=== PATIENT | male | born 1955 | race Caucasian/White ===

== ENCOUNTER 2024-03-31 10:09 | Observation (INO) | payer OTHER, SELFPAY ==
[2024-03-31] VITALS (9 sets, daily range): BP systolic 144–169; BP diastolic 75–90; PULSE 57–71; RESP 15–18; TEMP 35.9–36.7; O2SAT 93–98; BMI 22.4
--- NOTE | 2024-03-31 10:31 | CT_ITS ---
We are attempting to reach an attending provider to discuss findings. An addendum with communication details will be sent when the communication is complete. STUDY: CTA HEAD AND NECK WITH CONTRAST REASON FOR EXAM: Male, 68 years old. Neuro deficit, acute, stroke suspected RADIATION DOSAGE (If Supplied By Facility): CTDIvol = ( 23.55 ) mGy, DLP = ( 727.25 ) mGycm TECHNIQUE: CT angiography was performed with a multi-detector CT scanner. Data acquisition was obtained from the skull base through the vertex following intravenous administration of IV 100mL Isovue-370. MIP images were reconstructed from the axial data set. Post-processing of the angiographic images was performed, with multiplanar reformation and 3D reconstruction. Individualized dose optimization techniques were used for this CT. COMPARISON: No relevant priors. FINDINGS: Normal bilateral petrous carotid arteries. There is calcified plaque formation of the right cavernous carotid artery, without a cross-sectional luminal stenosis. There is calcified plaque formation of the left cavernous carotid artery, without a cross-sectional luminal stenosis. Normal right A1 segments of the anterior cerebral artery. Normal left A1 segments of the anterior cerebral artery. Normal intact anterior communicating artery (ACOM). Normal bilateral A2 segments of the anterior cerebral arteries. Normal right M1 and M2 segments of the middle cerebral arteries, with a normal M1 bifurcation. Normal left M1 and M2 segments of the middle cerebral arteries, with a normal M1 bifurcation. Normal right posterior communicating artery (PCOM). Normal left posterior communicating artery (PCOM). There is a small atretic left vertebral artery with a dominant right vertebral artery. Normal basilar artery with a normal basilar bifurcation. The visualized bilateral superior cerebellar (SCA) arteries are normal. Normal bilateral P1, P2 and visualized P3 segments of the posterior cerebral arteries. There is no demonstrated aneurysm of the [place]. There is no demonstrated abnormality of the visualized brain. AORTIC ARCH: Normal visualized aortic arch. Normal origins of the brachiocephalic, left common carotid, and left subclavian arteries. RIGHT CAROTID ARTERIES: Normal right common carotid artery (CCA). Normal right common carotid bulb. Normal origin of the right internal carotid (ICA) artery without a hemodynamically significant stenosis. Normal visualized cervical portion of the right internal carotid artery. Normal origin of the right external carotid artery (ECA). LEFT CAROTID ARTERIES: Normal left common carotid artery (CCA). Normal left common carotid bulb. Normal origin of the left internal carotid (ICA) artery without a hemodynamically significant stenosis. Normal visualized cervical portion of the left internal carotid artery. Normal origin of the left external carotid artery (ECA). VERTEBRAL ARTERIES: There is enhancement within the bilateral vertebral arteries with a small left vertebral artery, and a dominant right vertebral artery. The distal left vertebral artery is occluded at the level of the axis with reconstitution at the skull base. CT/STROKE CTA Head AND Neck W/Con IMPRESSION: Normal CTA Head with contrast. No carotid stenosis. Widely patent right vertebral artery which is dominant. 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 Electronically Signed: Mao Pierre MD at 11:12 EDT ,
--- NOTE | 2024-03-31 10:31 | EKG12_ITS ---
Test Reason : STROKE ALERT Blood Pressure : / mmHG Vent. Rate : 053 BPM Atrial Rate : 053 BPM P-R Int : 150 ms QRS Dur : 118 ms QT Int : 440 ms P-R-T Axes : 076 060 042 degrees QTc Int : 412 ms Sinus bradycardia Non-specific intra-ventricular conduction delay Borderline ECG Confirmed by Jn Mendoza ([id number]), editor trade journal MARY ANN VINCENT ([id number]) on 04/01/2024 8:25:24 AM Referred By: Confirmed By:Jn Mendoza
--- NOTE | 2024-03-31 10:31 | RAD_ITS ---
STUDY: X-RAY CHEST REASON FOR EXAM: Male, 68 years old. Neuro deficit, acute, stroke suspected TECHNIQUE: Single AP portable view of the chest. COMPARISON: None. FINDINGS: The lungs are clear and expanded. There is no demonstrated pleural abnormality. Normal size heart. Normal mediastinum and jake. Normal visualized pulmonary arteries. Normal visualized aortic arch and descending thoracic aorta. Normal visualized thoracic spine. Normal visualized ribs, clavicles, and shoulders. There is no demonstrated abnormality of the visualized soft tissue structures of the upper abdomen. RAD/Chest 1 View IMPRESSION: Normal x-ray examination of the chest. Electronically Signed: Mao Pierre MD at 12:09 EDT ,
--- NOTE | 2024-03-31 10:32 | NURSING ---
1031 stroke alert called
--- NOTE | 2024-03-31 10:32 | ED.VIS.STROK ---
HPI History of Present Illness Chief Complaint: Dizziness Informant: patient and family (x2) Onset/Context/Timing Onset: Today Narrative Narrative: 68-year-old male brought in by family because of acute onset of disequilibrium/dizziness. He states he feels like a sensation of movement like he is off balance not necessarily dizzy and his head although at 1 point during the evaluation he changed position and said he felt motion inside of his head. He states this started at 8:00 this morning, he had already been up and was feeling okay this morning until he sat down and then upon standing up. He did not feel like he was going to pass out or faint. It was associated with nausea and vomiting several times. No headache. No vision change. No peripheral neurologic symptoms, and the dizziness has not gone away it just gets worse when he changes positions, and he is off balance whenever he tries to walk. He has never had this before. He has chronic tinnitus that is no different this morning. No earache. No recent URI or other infection. No fevers or chills this morning with vomiting, no diarrhea no abdominal pain. He states he takes a baby aspirin daily, no anticoagulants or other antiplatelets, he states he has no known heart problems but he did have a cardiac calcium score that was in the 400s and his doctor wants him to be continuing on aspirin he has not had a heart catheterization. PFSH PFSH Allergy/AdvReac Type Severity Reaction Status Date / Time No Known Allergies Allergy Verified 03/31/24 10:10 [facility] ED Constitutional Constitutional ED: Denies chills or fever(s) Eyes Eyes: Denies change in vision or diplopia ENT ENT ED: Reports as per HPI, tinnitus and vertigo; Denies rhinorrhea or sore throat Cardiovascular Cardiovascular: Denies chest pain or palpitations Respiratory/Chest Respiratory/Chest: Denies cough or dyspnea Gastrointestinal Gastrointestinal: Reports nausea and vomiting; Denies abdominal pain or diarrhea Genitourinary Genitourinary ED: Denies dysuria or hematuria Musculoskeletal Musculoskeletal: Denies back pain or neck pain Integumentary Denies abscess or rash Neurologic Neurologic: Reports as per HPI, abnormal gait, disequilibrium and dizziness; Denies abnormal speech, headache(s), paresthesias or weakness Psychiatric Psychiatric: Denies anxiety or suicidal thoughts EXAM Physical Exam Const Vital Signs: 03/31/24 10:11 03/31/24 10:31 03/31/24 10:31 Temperature 96.6 F L Temperature Source Temporal Pulse Rate 60 57 L Respiratory Rate 18 18 Blood Pressure 169/75 H 145/90 H Blood Pressure Mean 106 108 Pulse Ox 98 97 Oxygen Delivery Method Room Air Room Air 03/31/24 11:01 03/31/24 11:31 Temperature Temperature Source Pulse Rate 66 60 Respiratory Rate 16 16 Blood Pressure 163/80 H 151/75 H Blood Pressure Mean 107 100 Pulse Ox 97 98 Oxygen Delivery Method Room Air Room Air Positive well nourished and well developed General Appearance ED: well developed and NAD HEENT Reports TM's clear and moist mucous membranes normocephalic and atraumatic Tympanic Membrane ED: Yes TM's clear Eyes PERRL and EOMs intact bilaterally Neck full ROM and supple Resp normal respiratory effort and clear to auscultation bilaterally Cardio regular rate, regular rhythm and no murmurs GI non-tender and non-distended Auscultation: normoactive bowel sounds Palpation: soft Back/Spine no CVA tenderness General Back: other FROM Extremity normal to inspection General Extremety ED: Negative for edema, pulses abnormal or tenderness General Extremity: Negative for edema or pulses abnormal Neuro oriented x3, CN's II-XII intact bilaterally and no sensory deficits noted Neuro Narrative: Normal [id number] and [id number] bilaterally. Normal jolt test. Sensorium / Orientation: awake and alert Motor Exam: strength 5/5 throughout Psych mental status grossly normal Skin no rashes or lesions noted and no wounds NIHSS NIHSS Initial: 1a Level of Consciousness: 0 1b LOC Questions (Score 2 if aphasic/stupor): 0 1c LOC Commands (Only score 1st attempt): 0 2 Best Gaze (If aphasic, use reflexive mvmts.): 0 3 Visual: 0 4 Facial Palsy: 0 5 Motor Arm Right (UN = amputation/fusion): 0 5 Motor Arm Left: 0 6 Motor Leg Right: 0 6 Motor Leg Left: 0 7 Limb ataxia (Only + if out of proportion): 0 8 Sensory (Aphasia/stupor=0 or 1, coma=2): 0 9 Best Language: 0 10 Dysarthria (mute, coma=2, intubated=UN): 0 11 Extinction and Inattention (only scored if +): 0 Total Score: 0 MDM MDM MDM Narrative Medical decision making narrative: Given this patient's evaluation I called a stroke alert. His NIH is 0, but he has a blood pressure of 169/75, symptoms that have not resolved since the onset, and a normal jolt test while having symptoms, all consistent with central etiology of vertigo. Emergently went to CT, I reviewed the imaging of the plain CT and a CTA and agree with the reports, the plain CT report was available initially showing no bleed or obvious etiology. Later this CTA was available and shows no LVO although there is a stenotic left vertebral which may or may not be related to the cause of his symptoms. I discussed with stroke neurology, who evaluated the patient at the bedside. We discussed the risk benefits and alternatives of thrombolytic with the patient and family, we all are in agreement at this time to hold off on thrombolytics due to nondisabling symptoms and risk of the medication outweighing the potential benefits at this time. He is not in A-fib. His systolic blood pressure is 149 on reevaluation. Neurology agrees with loading him with Plavix and admitting him for further workup. We are all in agreement that peripheral vertigo is in the differential here but he does have risk factors for TIA/stroke. Lab Data Attestation: I reviewed the patient's lab results. Labs: Laboratory Results - last 24 hr 03/31/24 03/31/24 03/31/24 10:37 10:39 11:20 WBC 12.2 H RBC 4.72 Hgb 14.2 Hct 43.4 MCV 91.9 MCH 30.1 MCHC 32.7 RDW Std Deviation 42.0 RDW Coeff of Natan 12.4 Plt Count 270 MPV 9.8 Immature Gran % (Auto) 0.400 Neut % (Auto) 89.9 H Lymph % (Auto) 6.1 L Burke % (Auto) 2.8 Eos % (Auto) 0.5 Baso % (Auto) 0.3 Absolute Neuts (auto) 10.9 H Absolute Lymphs (auto) 0.74 L Nucleated RBC % 0 PT 13.8 INR 1.1 APTT 30.3 Sodium 140 Potassium 3.6 Chloride 104 Carbon Dioxide 32.0 Anion Gap 5 BUN 17 Creatinine 1.06 Estim Creat Clear Calc 75.93 Est GFR (MDRD) Af Amer 90 Est GFR (MDRD) Non-Af 74 BUN/Creatinine Ratio 16.0 Glucose 145 H Calcium 9.3 Troponin I High Sens 5 POC Glucose 133 H Radiography Diagnostic Testing: Clinical Impression(s) from Imaging Studies Head/Neck CTA 03/31/24 10:31 IMPRESSION: Normal CTA Head with contrast. No carotid stenosis. Widely patent right vertebral artery which is dominant. 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 Electronically Signed: Mao Pierre MD at 11:12 EDT , Brain CT 03/31/24 10:37 IMPRESSION: No acute findings, no hemorrhage midline shift or mass effect. N.B. : The above Results were Read Back by Hussain Toro MD to Genaro Rodriguez and understanding confirmed on 03/31/2024 10:46:55 (ET). Electronically Signed: Hussain Troo MD at 10:48 EDT , ADDENDUM: 03/31/24 1055 IMPRESSION: No acute findings, no hemorrhage midline shift or mass effect. N.B. : The above Results were Read Back by Hussain Toro MD to Genaro Rodriguez and understanding confirmed on 03/31/2024 10:46:55 (ET). Electronically Signed: Hussain Toro MD at 10:48 EDT , Rhythm Strip Rhythm Strip: Sinus Rhythm Rate: 60 Ectopy: None EKG Initial EKG: Attestation: I personally reviewed and interpreted this EKG as follows: Interpretation: Sinus Rhythm and No Acute Injury Pattern Management Discussion w/another healthcare provider: Hospitalist, Director [employer] ([facility] stroke neurology) and Radiologist ([id number] neg NCCT) Stroke Documentation Questions Stroke Team Activated: No (Upon evaluation around 1030) Was Patient considered for Endovascular Intervention?: No-CTA negative, determined not to be an endovascular candidate IV Thrombolytic Administered: No Critical Care Time Critical Care Time: Yes Critical care time (excluding procedures): 30-74 minutes (37 min), Including time spent:, Discussing w/Patient &/or Family/Carpenter Assistant Installer, Discussing w/Consultants, Arranging Admission or Transfer and Performing Direct Patient Care at Bedside Discharge Plan Dx/Rx/DC Orders Clinical Impression: Dysequilibrium Disposition Disposition: Acute Care Hospital [facility]
--- NOTE | 2024-03-31 10:36 | NURSING ---
NO OLD EKGS
--- NOTE | 2024-03-31 10:37 | CT_ITS ---
INDICATION: Acute mental status EXAMINATION: CT BRAIN - CT Head Stroke Protocol W/O Contrast Injection TECHNIQUE: Multiple axial images were obtained of the head without intravenous contrast. The protocol utilizes one or more of the following dose reduction techniques: automated exposure control, adjustment of mA and/or kV according to patient size,and/or use of iterative reconstruction technique. IV Contrast dosage and agent: None. RADIATION DOSAGE (If Supplied By Facility): CTDIvol = ( ) mGy, DLP = ( ) mGycm COMPARISON: FINDINGS: BRAIN PARENCHYMA: No intra- or extra-axial hemorrhage. No evidence of acute infarct. No intracranial mass or mass effect. There is preservation of the fung/white matter interface. Posterior fossa structures are unremarkable. CSF SPACES: Appropriate for age. No hydrocephalus. Basal cisterns are patent. CALVARIUM, SKULL BASE, PARANASAL SINUSES AND MASTOID AIR CELLS: Clear. No discrete lytic or blastic abnormalities. ORBITS: Both globes, extraocular muscles, optic nerves and retrobulbar fat appear unremarkable. ASPECTS Score for Acute Strokes: 10 CT/STROKE Brain/Head without Cont IMPRESSION: No acute findings, no hemorrhage midline shift or mass effect. N.B. : The above Results were Read Back by Hussain Toro MD to Genaro Rodriguez and understanding confirmed on 03/31/2024 10:46:55 (ET). Electronically Signed: Hussain Toro MD at 10:48 EDT ,
[2024-03-31 10:55] LABS: Bedside Glucose 133 mg/dL (74-106)
[2024-03-31 10:58] LABS: International Normalized Ratio 1.1; Prothrombin Time (Protime)PT. 13.8 SECONDS (11.7-14.9)
[2024-03-31 11:00] LABS: Partial Thromboplast Time 30.3 Seconds (24.1-36.2)
[2024-03-31 11:14] LABS: Anion Gap 5 (5-15); BUN 17 mg/dL (7-18); Calcium,Total 9.3 mg/dL (8.5-10.1); Chloride 104 mmol/L (98-107); Creatinine, Serum 1.06 mg/dL (0.70-1.30); EST Glomerular Filtration Rate 74 mL/min (>60); Est Glom Filt Rate - Afr Amer 90 mL/min (>60); Estimated Creatinine Clearance 75.93 ml/min; Glucose 145 mg/dL (74-106); Potassium 3.6 mmol/L (3.5-5.1); Sodium Level 140 mmol/L (136-145); Troponin-I HS 5 pg/mL (3.0-78.0)
[2024-03-31 11:38] LABS: Absolute Lymphocyte Count 0.74 X10^3/uL (0.83-4.51); Absolute Neutrophil Count 10.9 X10^3/uL (2.0-7.7); Basophil# 0.04 X10^3/uL; Basophil% 0.3 % (0-1); Eosinophil# 0.06 X10^3/uL; Eosinophils% 0.5 % (0-5); Hematocrit 43.4 % (40-54); Hemoglobin 14.2 g/dL (13.0-16.5); Lymphocyte # 0.74 X10^3/ul (0.83-4.51); Lymphocyte % 6.1 % (19-41); Mean Corp Hgb Conc 32.7 g/dL (32-36); Mean Corpuscular Hgb 30.1 pg (27.0-32.0); Mean Corpuscular Volume 91.9 fL (80-94); Mean Platelet Vol. 9.8 fl (6.2-12.0); Monocyte# 0.34 X10^3/uL; Monocyte% 2.8 % (0-10); NRBC Flagged by Analyzer 0 % (0-5); Neutrophil # 10.93 X10^3/uL (2.7-7.7); Neutrophil % 89.9 % (47-70); Platelet Count 270 K/mm3 (150-450); RBC Distribution Width CV 12.4 % (11.6-14.6); Red Blood Count 4.72 M/mm3 (4.6-6.2); White Blood Count 12.2 K/mm3 (4.4-11.0)
--- NOTE | 2024-03-31 11:54 | PCM.HP.STD ---
HPI - General General Date of Admission: 03/31/24 Date of Service: 03/31/24 Chief Complaint: Disequilibrium HPI Narrative PRECIOUS HWANG, is a 68 M with past medical history signal for hypertension, dyslipidemia who presented to the emergency department with disequilibrium. Per patient he was in usual state of health till the morning of his presentation when he woke up suddenly from his sitting position and felt wobbly. Denied any falls he however did experience subjective sensation of spinning movement. Denied any focal weakness no slurred speech. He presented to the emergency department subsequently. Initial head CT came back unremarkable CTA did showHypoplastic left vertebral artery occluded at the level of the axis with reconstitution at the skull base[facility] given patient mild symptoms. Subsequently admitted to monitored bed for further manage PFSH Allergy/AdvReac Type Severity Reaction Status Date / Time No Known Allergies Allergy Verified 03/31/24 10:10 ROS ROS Narrative GENERAL: denies fever, chills, night sweats, weight loss, anorexia HEENT: denies headache, sinus congestion, or drainage, dysphagia RESPIRATORY: denies cough, sputum production, shortness of breath, dyspnea on exertion CARDIAC: denies chest pain, palpitations, orthopnea, PND GASTROINTESTINAL: denies abdominal pain, nausea, vomiting, melena, GENITOURINARY: denies dysuria, urgency, frequency, heamaturia EXTREMITY: denies swelling MUSCULOSKELETAL: denies current joint pain or tenderness NEUROLOGIC: denies focal numbness, weakness, tingling HEMATOLOGIC: denies easy bruising and/or hemorrhage INTEGUMENT: denies rashes PSYCHIATRIC: denies suicidal or homicidal ideation Vital Signs Vital Signs Vital Signs: 03/31/24 10:11 03/31/24 10:31 03/31/24 10:31 Temperature 96.6 F L Temperature Source Temporal Pulse Rate 60 57 L Respiratory Rate 18 18 Blood Pressure 169/75 H 145/90 H Blood Pressure Mean 106 108 Pulse Ox 98 97 Oxygen Delivery Method Room Air Room Air 03/31/24 11:01 03/31/24 11:31 Temperature Temperature Source Pulse Rate 66 60 Respiratory Rate 16 16 Blood Pressure 163/80 H 151/75 H Blood Pressure Mean 107 100 Pulse Ox 97 98 Oxygen Delivery Method Room Air Room Air Weight Weight: 79.379 kg Body Mass Index (BMI) 22.4 Physical Exam Narrative GENERAL: cooperative HEENT: Atraumatic; normocephalic EYES; Anicteric, Normal Conjunctiva NECK; supple, normal thyroid, RESPIRATORY: Diminished to auscultation CARDIOVASCULAR: Regular S1 S2, GI: soft, normoactive bowel sounds, : No Renal angle tenderness; EXTREMITIES: No edema, no clubbing, MUSCULOSKELETAL: no muscle wasting NEURO: Awake; no lateralizing signs. SKIN: No Rash PSYCH; Flat affect Results Lab / Micro Data 03/31/24 11:20 03/31/24 10:39 Labs: Laboratory Results - last 24 hr 03/31/24 10:37: POC Glucose 133 H 03/31/24 10:39: PT 13.8, INR 1.1, APTT 30.3, Sodium 140, Potassium 3.6, Chloride 104, Carbon Dioxide 32.0, Anion Gap 5, BUN 17, Creatinine 1.06, Estim Creat Clear Calc 75.93, Est GFR (MDRD) Af Amer 90, Est GFR (MDRD) Non-Af 74, BUN/Creatinine Ratio 16.0, Glucose 145 H, Calcium 9.3, Troponin I High Sens 5 03/31/24 11:20: WBC 12.2 H, RBC 4.72, Hgb 14.2, Hct 43.4, MCV 91.9, MCH 30.1, MCHC 32.7, RDW Std Deviation 42.0, RDW Coeff of Natan 12.4, Plt Count 270, MPV 9.8, Immature Gran % (Auto) 0.400, Neut % (Auto) 89.9 H, Lymph % (Auto) 6.1 L, [place] % (Auto) 2.8, Eos % (Auto) 0.5, Baso % (Auto) 0.3, Absolute Neuts (auto) 10.9 H, Absolute Lymphs (auto) 0.74 L, Nucleated RBC % 0 Rhythm Strip Rhythm Strip: Sinus Rhythm Rate: 60 Ectopy: None Imaging Radiology Impression Head/Neck CTA 03/31/24 10:31 IMPRESSION: Normal CTA Head with contrast. No carotid stenosis. Widely patent right vertebral artery which is dominant. 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 Electronically Signed: Mao Pierre MD at 11:12 EDT , Brain CT 03/31/24 10:37 IMPRESSION: No acute findings, no hemorrhage midline shift or mass effect. N.B. : The above Results were Read Back by Hussain Toro MD to Genaro Rodriguez and understanding confirmed on 03/31/2024 10:46:55 (ET). Electronically Signed: Hussain Toro MD at 10:48 EDT , ADDENDUM: 03/31/24 1055 IMPRESSION: No acute findings, no hemorrhage midline shift or mass effect. N.B. : The above Results were Read Back by Hussain Toro MD to Genaro Rodriguez and understanding confirmed on 03/31/2024 10:46:55 (ET). Electronically Signed: Hussain Toro MD at 10:48 EDT , Assessment & Plan Assessment/Plan (1) Dysequilibrium: PLAN: Plan Patient is a 68-year-old gentleman presented with disequilibrium 1. Disequilibrium admitted to monitored bed undergoing subsequent evaluation with an MRI to rule out posterior circulation CVA. As part of his management patient was placed on every 4 neurochecks antiplatelet therapy with aspirin and Plavix as well as statin therapy with atorvastatin. Also ordered 2D echo for subsequent eval 2. Essential hypertension ? Plan is to allow for permissive hypertension while ruling out CVA 3. Dyslipidemia ?Patient is on statin therapy, continued at home dose 4. Chronic marijuana use -cessation encouraged 5. BPH ? Currently not on any medications 6. DVT prophylaxis ? On enoxaparin Time spent in the patient's overall evaluation,decision-making process, review of diagnostic data, adjustment of management, discussion with other providers, nursing nursing and ancillary staff involved in patient's care documentation, 60 minutes Advance planning; did discuss with the patient and family regarding advanced directives as well as CODE STATUS. Did explain the various scenarios involved ( FULL CODE, DNR CCA, DNR CCA with no intubation, and DNR CC and what each meant) patient elected to remain full code with CPR and intubation if warranted. Order was placed. Time spent on discussion 16 minutes. Charges/Coding Multi Select Codes Visit Charges Visit Charges: 65470 Init Hosp Hospitalists' Procedures Procedures: 15601 Advncd Care Plan 30 Min
--- NOTE | 2024-03-31 12:10 | MRI_ITS ---
STUDY: MRI BRAIN WITHOUT CONTRAST REASON FOR EXAM: Male, 68 years old. cva TECHNIQUE: Standardized multiplanar fat and water weighted pulse sequences were obtained. COMPARISON: CT of the brain March 31, 2024 FINDINGS: Normal size of the ventricles and extra-axial spaces for the patient''s age. There are a couple of tiny punctate white matter lesions without mass effect or restricted diffusion most likely representing ischemic change secondary to small vessel disease in patient of this age. Normal bilateral basal ganglia. Normal thalami. There is no extra-axial fluid accumulation. Normal flow voids within the major intracranial circulation suggesting patency by spin echo criteria. Normal sella turcica, pituitary gland, infundibular stalk, optic chiasm and hypothalamus. Normal tectal plate and pineal gland. Normal midbrain, and medulla. Increased signal intensity within the yoshi possibly due to old ischemic changes Normal cerebellum. Normal basal cisterns. Normal bilateral temporal bones. Normal bilateral internal auditory canals. No demonstrated orbital abnormality, within the constraints of a routine brain study. Normal visualized paranasal sinuses. Normal calvarium and skull base. Normal visualized soft tissue structures. Normal visualized upper cervical spine. MRI/Brain without Contrast IMPRESSION: Minimal periventricular white matter ischemic change without evidence for acute infarct Cannot exclude possibility of old pontine infarct. Electronically Signed: Samuel Valdez MD at 21:01 EDT ,
--- NOTE | 2024-03-31 12:21 | CHAPLAIN ---
Type of Pastoral Visit ___ Initial Visit ___ Follow-up Visit ___ On-call Visit ___ General Patient Visit ___ Spiritual Assessment ___ Family Conference ___ Bereavement _x__ Rapid Response ___ Code Blue ___ Other (describe below) Pastoral Care Referral From ___ Patient ___ Family ___ Nurse ___ Physician ___ Fish Peddler ___ Weatherization Specialist _x__ Other (describe below) Sacrament/Intervention ___ Active listening ___ Anointing ___ Congregation ___ Bereavement ___ Communion ___ Shakira exploration ___ ___ Life review ___ Prayer ___ Reconciliation ___ Sacrament of Sick _x__ Supportive presence ___ Wedding ___ Other (describe below) Pastoral Comments responded to stroke alert to this patient; pt was being taken for CT; two family members are in the room; introduced self and role to family; offered presence and support; family members state that they are fine and they have each other; no other needs expressed or acknowledged
[2024-03-31] MEDS: Aspirin 81 MG TAB.CHEW PO (12:27)
[2024-03-31] MEDS: Clopidogrel Bisulfate 300 MG Tablet PO (12:27)
[2024-03-31 14:20] LABS: Thyroid Stim Hormone (TSH) 0.565 uIU/mL (0.358-3.740); Troponin-I HS 5 pg/mL (3.0-78.0)
[2024-03-31] MEDS: Enoxaparin 40 MG/0.4 ML Syringe SC (14:26)
--- NOTE | 2024-03-31 15:09 | CM.ED ---
Social Work Responded to Stroke Alert. Met with patient and 2 nieces - Surekha and Ashley in room. Introduced to self and role, offered emotional support. Patient does not have advance directives in place but interested in having more information. Provided patient with POAHC and Living Will forms, Q&A educational booklet on advance care planning, and SW rack card should patient want assist in completing forms in the future. Patient to be admitted to acute unit for further workup. Educated that RN CM and SW will be available for discharge planning needs as needed or indicated. -ELEAZAR Lee
--- NOTE | 2024-03-31 15:12 | CASEMGMT ---
Care Management Face to Face with patient in the ED for initial transition planning/care coordination assessment. With patient?s permission, patient?s nijoaquin Irby and Ashley present in room. ?This ticket writer introduced self and role at [facility]. Patient lying in bed, alert and oriented. Patient willing to participate in assessment and is able to answer all questions appropriately.? Care providers, pharmacy, and demographics verified. Admitting Diagnosis: disequilibrium; Stroke alert called in the ED. Other diagnosis history:? HTN; refer to H&P for details of other medical history. [facility] [place], [place] Dr. Wolf. Specialists: [facility];? reports has never had a local pharmacy for pickup. Insurance: [facility];? Medicare A Prescription Benefit:? [facility] ? reports does not have any copays for prescriptions.? Living Will/HPOA: Does not have but information provided on such while patient in the ED.? Patient is aware can ask for SW assist in completing, should patient choose to want to do so while at the hospital or as an outpatient. LNOK: Has 2 nieces locally, Ashley and Surekha.?? Reports to have siblings in [place] and [place].??? No children.? Living Arrangements: Lives with Surekha and family;? 2 floors plus a basement; full flights of stairs.? Has been independent at home. Transportation: Drives a motorcycle.?? DME/HHC: ?Blood pressure cuff Community Resources:? [facility] [place]. Patient goals: Patient wishes to discharge home; no new needs identified or requested at this time. Disposition Plan: ?Anticipate home with family assist.?? Care Management team remains available should needs arise.? -ELEAZAR Lee
[2024-03-31 17:11] LABS: Troponin-I HS 6 pg/mL (3.0-78.0)
[2024-03-31] MEDS: Atorvastatin Calcium 40 MG Tablet PO (19:58)
[2024-03-31] MEDS: Acetaminophen 325 MG Tablet 650 MG PO (20:11)
[2024-04-01 00:08] VITALS: O2SAT 98
[2024-04-01 00:30] VITALS: BP 138/81; PULSE 67; RESP 18; TEMP 36.4; O2SAT 97
[2024-04-01 04:00] VITALS: BP 127/65; PULSE 60; RESP 16; TEMP 36.5; O2SAT 95
[2024-04-01 06:29] LABS: Absolute Lymphocyte Count 1.75 X10^3/uL (0.83-4.51); Absolute Neutrophil Count 6.1 X10^3/uL (2.0-7.7); Basophil# 0.06 X10^3/uL; Basophil% 0.7 % (0-1); Eosinophil# 0.26 X10^3/uL; Eosinophils% 2.9 % (0-5); Hematocrit 42.9 % (40-54); Hemoglobin 14.4 g/dL (13.0-16.5); Lymphocyte # 1.75 X10^3/ul (0.83-4.51); Lymphocyte % 19.7 % (19-41); Mean Corp Hgb Conc 33.6 g/dL (32-36); Mean Corpuscular Hgb 30.7 pg (27.0-32.0); Mean Corpuscular Volume 91.5 fL (80-94); Mean Platelet Vol. 9.9 fl (6.2-12.0); Monocyte# 0.66 X10^3/uL; Monocyte% 7.4 % (0-10); NRBC Flagged by Analyzer 0 % (0-5); Neutrophil # 6.13 X10^3/uL (2.7-7.7); Neutrophil % 68.9 % (47-70); Platelet Count 264 K/mm3 (150-450); RBC Distribution Width CV 12.4 % (11.6-14.6); RBC Distribution Width SD 41.1 fl (35.1-43.9); Red Blood Count 4.69 M/mm3 (4.6-6.2); White Blood Count 8.9 K/mm3 (4.4-11.0)
[2024-04-01 06:55] LABS: Anion Gap 5 (5-15); BUN 14 mg/dL (7-18); BUN/Creat Ratio 16.5 RATIO (10-20); Calcium,Total 8.7 mg/dL (8.5-10.1); Chloride 104 mmol/L (98-107); Cholesterol 94 mg/dL (200); Creatinine, Serum 0.85 mg/dL (0.70-1.30); EST Glomerular Filtration Rate 96 mL/min (>60); Est Glom Filt Rate - Afr Amer 116 mL/min (>60); Estimated Creatinine Clearance 94.68 ml/min; Glucose 101 mg/dL (74-106); High Density Lipoprotein 42 mg/dL; Magnesium 1.9 mg/dL (1.6-2.6); Phosphorus 2.8 mg/dL (2.5-4.9); Potassium 3.4 mmol/L (3.5-5.1); Sodium Level 139 mmol/L (136-145); Triglycerides 70 mg/dL; Very Low Density Lipoprotein 14 mg/dL (5-40)
[2024-04-01] MEDS: Clopidogrel Bisulfate 75 MG Tablet PO (09:17)
[2024-04-01] MEDS: Enoxaparin 40 MG/0.4 ML Syringe SC (09:17)
[2024-04-01] MEDS: Acetaminophen 325 MG Tablet 650 MG PO (09:17)
[2024-04-01 09:22] VITALS: BP 165/93; PULSE 68; RESP 16; TEMP 36.5; O2SAT 94
[2024-04-01] MEDS: Lisinopril 20 MG Tablet PO (10:21)
--- NOTE | 2024-04-01 11:20 | NEURO.CONS ---
Assessment and Plan: Neuro Assessment/Plan PRECIOUS HWANG is a 68 M with a past medical history of hypertension, dyslipidemia, being evaluated by Teleneurology for ataxia/dysequilibrium. Transient vertigo without any clear associated symptoms. 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 MRI did not show stroke. Symptoms began as he stood up from sitting. It is possible related to vertebral insufficiency related to chronic occlusion vs TIA. Less likely BPPV or other vestibular pathology by description. I would not expect orthostasis to cause prolonged symptoms but can consider this as well. Diagnosis: TIA vs BPPV Plan: - Orthostatic vitals - Follow up with PT for balance assessment/vestibular therapy - Continue ASA/Plavix as recommended by telestroke - Continue Lipitor - Otherwise no further work up from neurology standpoint, ok to discharge I personally attended this patient and spent a total time of 31 minutes evaluating this patient including clinical assessment, review of chart, medical history imaging, and determining appropriate treatment and workup. HPI Consult Data Date of Consult: 04/01/24 HPI Narrative HPI Narrative: PRECIOUS HWANG, is a 68 M who with history of hypertension, dyslipidemia presents with ataxia/dysequilibrium. Around 0800 yesterday he had acute onset of dysequilibrium. [place] tipsy. He had been sitting in a chair, when he stood up was went symptoms started. He had trouble walking in a straight line. Sensation lasted for 12 hours but slowly improve during this time. He did have vomiting associated with it. After the vertigo resolved he did have a mild headache on the top of his head. He has chronic photophobia, this was unchanged. He denies weakness, numbness, vision changes. He does have intermittent vertigo chronically when he lies flat, this resolves when he turns his head or sits up. Reports chronic ringing in both ears. [facility] Home Medications ?Medication ?Instructions ?Recorded ?Last Taken ?Type aspirin 81 mg chewable tablet 1 tab PO DAILY 03/31/24 Unknown History lisinopril 20 mg tablet 20 mg PO DAILY 03/31/24 Unknown History rosuvastatin 20 mg tablet (Crestor) 20 mg PO DAILY 03/31/24 Unknown History Allergy/AdvReac Type Severity Reaction Status Date / Time No Known Allergies Allergy Verified 03/31/24 10:10 Social History Smoking Status: Never smoker Vital Signs Vital Signs Vital Signs: 03/31/24 11:31 03/31/24 12:00 03/31/24 12:34 Temperature 97.7 F L Temperature Source Pulse Rate 60 61 61 Respiratory Rate 16 15 16 Respiratory Effort Respiratory Depth Respiratory Pattern Blood Pressure 151/75 H 150/87 H 150/87 H Blood Pressure Mean 100 108 108 Blood Pressure Source Blood Pressure Position Blood Pressure Location Pulse Ox 98 98 98 Oxygen Delivery Method Room Air Room Air 03/31/24 14:22 03/31/24 15:49 03/31/24 15:49 Temperature 97.7 F L Temperature Source Temporal Pulse Rate 66 Respiratory Rate 16 16 Respiratory Effort Normal Non-Labored Respiratory Depth Normal Respiratory Pattern Normal Blood Pressure 144/85 H Blood Pressure Mean 104 Blood Pressure Source Monitor Blood Pressure Position Semi-Fowlers Blood Pressure Location Left Arm Pulse Ox 98 93 93 Oxygen Delivery Method Room Air Room Air Room Air 03/31/24 19:20 03/31/24 20:05 04/01/24 00:08 Temperature 98.1 F Temperature Source Temporal Pulse Rate 71 Respiratory Rate 18 Respiratory Effort Normal Non-Labored Respiratory Depth Normal Respiratory Pattern Normal Blood Pressure 153/84 H Blood Pressure Mean 107 Blood Pressure Source Monitor Blood Pressure Position Semi-Fowlers Blood Pressure Location Left Arm Pulse Ox 98 98 Oxygen Delivery Method Room Air Room Air Room Air 04/01/24 00:30 04/01/24 00:30 04/01/24 04:00 Temperature 97.6 F L 97.7 F L Temperature Source Temporal Temporal Pulse Rate 67 60 Respiratory Rate 18 16 Respiratory Effort Normal Non-Labored Respiratory Depth Normal Respiratory Pattern Normal Blood Pressure 138/81 H 127/65 H Blood Pressure Mean 100 85 Blood Pressure Source Monitor Monitor Blood Pressure Position Supine Supine Blood Pressure Location Left Arm Right Arm Pulse Ox 97 95 Oxygen Delivery Method Room Air Room Air Room Air 04/01/24 08:04 04/01/24 09:22 Temperature 97.7 F L Temperature Source Oral Pulse Rate 68 Respiratory Rate 16 Respiratory Effort Normal Non-Labored Respiratory Depth Normal Respiratory Pattern Normal Blood Pressure 165/93 H Blood Pressure Mean 117 Blood Pressure Source Monitor Blood Pressure Position Semi-Fowlers Blood Pressure Location Left Arm Pulse Ox 94 Oxygen Delivery Method Room Air Room Air Weight Weight: 79.379 kg Body Mass Index (BMI) 22.4 EEG Results Procedure Details EEG Procedure Details: PRECIOUS HWANG is a 68 year old M with a past medical history of , who presents for evaluation of Electroencephalogram on DATE at TIME NIHSS NIHSS Nursing Documentation NIHSS Nursing Documentation: NIHSS: Ischemic Stroke/TIA Start: 03/31/24 12:38 Text: For PCU Patients: NIH and Neuro Check every 4 Status: Complete hours, PRN and with change in RN caregiver. Freq: [id number] Protocol: Activity Type Activity Date Activity User E-sign Co-sign Detail Recorded Client Recorded Date Recorded By Document 04/01/24 00:30 CURTIS [id number] 04/01/24 00:43 CURTIS 04/01/24 00:30 NIH Stroke Scale [NIHSS] A score of 0 is normal or asymptomatic . Total possible score is 42. Inpatient: RN or Physician to activate a stroke alert for onset of new stroke symptoms or with NIHSS increase >/= 3 points. Following change in neurological status, NIHSS will be performed per physician order or more frequently PRN. -1a. Level of Consciousness Alert; keenly responsive -1b. LOC Questions Answers BOTH questions correctly. -1c. LOC Commands Performs both tasks correctly . -2. Best Gaze Normal -3. Visual No visual loss -4. Facial Palsy Normal symmetrical movements -5a. Left Arm No drift; arm holds 90 (or 45 ) degrees for full 10 seconds -5b. Right Arm No drift; arm holds 90 (or 45 ) degrees for full 10 seconds -6a. Left Leg No drift; leg holds 30-degree position for full 5 seconds -6b. Right Leg No drift; leg holds 30-degree position for full 5 seconds -7. Limb Ataxia Absent -8. Sensory Normal; no sensory loss -9. Best Language No aphasia; normal -10. Dysarthria Normal -11. Extinction and Inattention No abnormality -Total 0 Query Text:A score of 0 is normal or asymptomatic. Total possible score is 42 . ED: Notify Physician for NIHSS increase by > / = 3 points. Inpatient: RN or Physician to activate a stroke alert for NIHSS increase of > / = 3 points. Coma Scale [Assess] -Eye Opening Spontaneous -Motor Obeys Commands -Verbal Oriented [Total] -Coma Scale Total 15 Physical Exam Neuro Sensorium / Orientation: awake, alert, oriented to person, oriented to place and oriented to time Cranial Nerves: CN normal except as noted Coordination / Balance: [id number] test normal, [id number]-[id number] test normal, tandem gait normal and Romberg test negative Speech: speech normal Gait (Neuro): normal gait Motor Exam: strength 5/5 throughout, muscle tone normal throughout and no pronator drift Pupil Exam: Normal Pupillary Reactivity/Response: bilateral Lab / Micro Data 04/01/24 05:28 04/01/24 05:28 Labs: Laboratory Results - last 24 hr 03/31/24 11:20: WBC 12.2 H, RBC 4.72, Hgb 14.2, Hct 43.4, MCV 91.9, MCH 30.1, MCHC 32.7, RDW Std Deviation 42.0, RDW Coeff of Natan 12.4, Plt Count 270, MPV 9.8, Immature Gran % (Auto) 0.400, Neut % (Auto) 89.9 H, Lymph % (Auto) 6.1 L, Yates % (Auto) 2.8, Eos % (Auto) 0.5, Baso % (Auto) 0.3, Absolute Neuts (auto) 10.9 H, Absolute Lymphs (auto) 0.74 L, Nucleated RBC % 0, Hemoglobin A1c 6.0 H 03/31/24 13:35: Troponin I High Sens 5, TSH 0.565 03/31/24 16:45: Troponin I High Sens 6 04/01/24 05:28: WBC 8.9, RBC 4.69, Hgb 14.4, Hct 42.9, MCV 91.5, MCH 30.7, MCHC 33.6, RDW Std Deviation 41.1, RDW Coeff of Natan 12.4, Plt Count 264, MPV 9.9, Immature Gran % (Auto) 0.400, Neut % (Auto) 68.9, Lymph % (Auto) 19.7, Yates % (Auto) 7.4, Eos % (Auto) 2.9, Baso % (Auto) 0.7, Absolute Neuts (auto) 6.1, Absolute Lymphs (auto) 1.75, Nucleated RBC % 0, Sodium 139, Potassium 3.4 L, Chloride 104, Carbon Dioxide 30.0, Anion Gap 5, BUN 14, Creatinine 0.85, Estim Creat Clear Calc 94.68, Est GFR (MDRD) Af Amer 116, Est GFR (MDRD) Non-Af 96, BUN/Creatinine Ratio 16.5, Glucose 101, Calcium 8.7, Phosphorus 2.8, Magnesium 1.9, Triglycerides 70, Cholesterol 94, LDL Cholesterol 38, VLDL Cholesterol 14, HDL Cholesterol 42 Rhythm Strip Rhythm Strip: Sinus Rhythm Rate: 60 Ectopy: None Imaging Radiology Impression Chest X-Ray 03/31/24 10:31 IMPRESSION: Normal x-ray examination of the chest. Electronically Signed: Mao Pierre MD at 12:09 EDT , Head/Neck CTA 03/31/24 10:31 IMPRESSION: Normal CTA Head with contrast. No carotid stenosis. Widely patent right vertebral artery which is dominant. 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 Electronically Signed: Mao Pierre MD at 11:12 EDT Reading Location ID and State: [id number] / [employer] , Service support , ADDENDUM: 03/31/24 1212 IMPRESSION: Normal CTA Head with contrast. No carotid stenosis. Widely patent right vertebral artery which is dominant. 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 N.B. : The above Results were Read Back by Mao Pierre MD to Genaro Rodriguez MD, and understanding confirmed on 03/31/2024 12:06:00 (ET). Electronically Signed: Mao Pierre MD at 11:12 EDT , Brain MRI 03/31/24 12:10 IMPRESSION: Minimal periventricular white matter ischemic change without evidence for acute infarct Cannot exclude possibility of old pontine infarct. Electronically Signed: Samuel Valdez MD at 21:01 EDT , Active Medications Active Medications Active Medications: Current Medications Generic Name Dose Route Start Last Admin Trade Name Freq PRN Reason Stop Dose Admin Acetaminophen 650 mg 03/31/24 12:38 04/01/24 09:17 Acetaminophen 325 Mg Tablet PO 650 mg Q6H PRN PRN Administration Pain 1-10 Or Fever>100.7 Al Hydroxide/Mg Hydroxide 30 ml 03/31/24 12:38 Mag Hydrox/Al Hydrox/Simeth 30 Ml Udc PO Q6H PRN PRN Gastric Burning Atorvastatin Calcium 40 mg 03/31/24 22:00 03/31/24 19:58 Atorvastatin Calcium 40 Mg Tablet PO 40 mg QHS BALAJI Administration Clopidogrel Bisulfate 75 mg 03/31/24 12:38 04/01/24 09:17 Clopidogrel Bisulfate 75 Mg Tablet PO 75 mg DAILY BALAJI Administration Enoxaparin Sodium 40 mg 03/31/24 12:38 04/01/24 09:17 Enoxaparin 40 Mg/0.4 Ml Syringe SC 40 mg DAILY BALAJI Administration Hydralazine HCl 5 mg 03/31/24 12:38 Hydralazine 20 Mg/Ml Vial IV 04/01/24 12:38 Q30M PRN maintain BP parameters with HR <60 Labetalol HCl 10 - 20 mg 03/31/24 12:38 Labetalol (Prefilled) 20 Mg/4 Ml Vial IV 04/01/24 12:38 Q10M PRN PRN maintain BP parameters with HR >/=60 Lisinopril 20 mg 04/01/24 10:00 04/01/24 10:21 Lisinopril 20 Mg Tablet PO 20 mg DAILY BALAJI Administration Protocol Meclizine HCl 25 mg 03/31/24 17:00 Meclizine Hcl 25 Mg Tablet PO TID PRN PRN VERTIGO Nitroglycerin 0.4 mg 03/31/24 12:38 Nitroglycerin (Inpatient Use) 0.4 Mg Tab.Subl SL Q5M PRN CARDIAC/CHEST PAIN Ondansetron HCl 4 mg 03/31/24 12:38 Ondansetron 4 Mg/2 Ml Vial IV Q8H PRN PRN NAUSEA/VOMITING Potassium Chloride 20 meq 04/01/24 17:00 Potassium Chloride Oral Tablet 20 Meq PO BIDCM BALAJI Senna/Docusate Sodium 2 tablet 03/31/24 12:38 Senna/Docusate Sodium 1 Tablet PO BID PRN PRN Constipation Sodium Chloride 10 - 40 ml 03/31/24 13:53 0.9% Saline Lock 10 Ml Syringe IV UD PRN SALINE FLUSH
[2024-04-01 11:46] VITALS: BP 153/94; PULSE 73; RESP 16; TEMP 36.5; O2SAT 96
[2024-04-01] MEDS: 0.9% Saline Lock 10 ML Syringe IV (11:48)
--- NOTE | 2024-04-01 12:11 | CASEMGMT ---
Met with patient to complete ROGERS form. ROGERS form explained to patient who voiced understanding and signed form. Original form placed in pt?s chart and copy provided to patient. Delphine Smith, Discharge Planning Asst
--- NOTE | 2024-04-01 13:09 | PCM.DC.SUM ---
Providers Date of Admission: 03/31/24 Date of Discharge: 04/01/24 Primary Care Physician: [facility] Consultations 03/31/24 12:38 Consult: Tele-Neurology Routine Consulting Provider: [facility] Reason for Consult: Acute Ischemic Stroke/TIA EMERGENT Consult: No MD Notified: Yes Date Notified: 03/31/24 Time Notified: 12:52 Method of Notification: Answering Service Nursing Unit Staff Notify [facility] of Tele-Neurology Consult: Yes Reason For Visit: DISEQUILIBRIUM Diagnosis Discharge Diagnosis (1) Dysequilibrium: Status: Acute Code(s): R42 - Dizziness and giddiness Plan Patient is a 68-year-old gentleman presented with disequilibrium 1. Disequilibrium admitted to monitored bed undergoing subsequent evaluation with an MRI to rule out posterior circulation CVA. As part of his management patient was placed on every 4 neurochecks antiplatelet therapy with aspirin and Plavix as well as statin therapy with atorvastatin. Also ordered 2D echo for subsequent eval ? MRI was negative for acute CVA prescription was written for meclizine on the 2. Essential hypertension ? Plan is to allow for permissive hypertension while ruling out CVA 3. Dyslipidemia ?Patient is on statin therapy, continued at home dose 4. Chronic marijuana use -cessation encouraged 5. BPH ? Currently not on any medications 6. DVT prophylaxis ? On enoxaparin Time spent in the patient's overall evaluation,decision-making process, review of diagnostic data, adjustment of management, discussion with other providers, nursing nursing and ancillary staff involved in patient's care documentation, 35 minutes Medications at Discharge Home Medications aspirin 81 mg chewable tablet 1 tab PO DAILY 03/31/24 lisinopril 20 mg tablet 20 mg PO DAILY 03/31/24 rosuvastatin 20 mg tablet (Crestor) 20 mg PO DAILY 03/31/24 meclizine 25 mg tablet 25 mg PO TID PRN dizziness #30 tabs 04/01/24 Physical Exam Narrative GENERAL: cooperative HEENT: Atraumatic; normocephalic EYES; Anicteric, Normal Conjunctiva NECK; supple, normal thyroid, RESPIRATORY: Diminished to auscultation CARDIOVASCULAR: Regular S1 S2, GI: soft, normoactive bowel sounds, : No Renal angle tenderness; EXTREMITIES: No edema, no clubbing, MUSCULOSKELETAL: no muscle wasting NEURO: Awake; no lateralizing signs. SKIN: No Rash PSYCH; Flat affect Weight / BMI Weight Weight: 79.379 kg Body Mass Index (BMI) 22.4 ABG / Lab / Microbiology Data 04/01/24 05:28 04/01/24 05:28 Laboratory: Laboratory Results - last 24 hr 03/31/24 11:20: Hemoglobin A1c 6.0 H 03/31/24 13:35: Troponin I High Sens 5, TSH 0.565 03/31/24 16:45: Troponin I High Sens 6 04/01/24 05:28: WBC 8.9, RBC 4.69, Hgb 14.4, Hct 42.9, MCV 91.5, MCH 30.7, MCHC 33.6, RDW Std Deviation 41.1, RDW Coeff of Natan 12.4, Plt Count 264, MPV 9.9, Immature Gran % (Auto) 0.400, Neut % (Auto) 68.9, Lymph % (Auto) 19.7, Ross % (Auto) 7.4, Eos % (Auto) 2.9, Baso % (Auto) 0.7, Absolute Neuts (auto) 6.1, Absolute Lymphs (auto) 1.75, Nucleated RBC % 0, Sodium 139, Potassium 3.4 L, Chloride 104, Carbon Dioxide 30.0, Anion Gap 5, BUN 14, Creatinine 0.85, Estim Creat Clear Calc 94.68, Est GFR (MDRD) Af Amer 116, Est GFR (MDRD) Non-Af 96, BUN/Creatinine Ratio 16.5, Glucose 101, Calcium 8.7, Phosphorus 2.8, Magnesium 1.9, Triglycerides 70, Cholesterol 94, LDL Cholesterol 38, VLDL Cholesterol 14, HDL Cholesterol 42 Radiography Diagnostic Testing: Radiology Impression Brain MRI 03/31/24 12:10 IMPRESSION: Minimal periventricular white matter ischemic change without evidence for acute infarct Cannot exclude possibility of old pontine infarct. Electronically Signed: Samuel Valdez MD at 21:01 EDT , D/C Instructions Discharge Diet: No restrictions Discharge Activity: Return to Normal Activity Call your doctor if you observe: Fever of 101 or Higher, Shortness of breath, Fainting spells and Chest pain Meaningful Use Info Meaningful Use Meaningful Use Diagnoses (Choose all that apply): None applicable Ischemic Stroke Statin Dosing Therapy Reference: STATIN DOSE THERAPY REFERENCE: * Patients > 75 years receive moderate or high dose statin therapy. * Patients 75 years or YOUNGER should receive HIGH intensity statin dose unless contraindicated. You will be required to document reason for non-treatment if statin daily dose does not meet guidelines. HIGH DOSE STATIN THERAPY DAILY Atorvastatin > than or = to 40 mg Rosuvastatin > than or = to 20 mg Amlodipine + Atorvastatin > than or = to 2.5/40 mg Ezetimibe + Simvastatin 10/80 mg Simvastatin 80mg Discharge Plan Admission Admit Date/Time: 03/31/24 11:54 Attending Provider: Landon Camacho Primary Care Provider: [place] Consulting Providers: Zana Blake; Liyah Avalos; Prisca Mason; Shala Page; Kimberly Coyle; Alfredo Aly; Gabriela Sandoval; Sherif Price; Alphonso Baca; Luis Negrete; Monica De La Cruz; Tomi Valdovinos; Jeanette Short; Ana Webber; Desirehai Hugo; Jameson Martines; Jazmyn Fernández; Tariq Peña; Alysha Kimball; Dustin Lin Discharge Orders/Prescriptions Prescriptions: New meclizine 25 mg tablet 25 mg PO TID PRN (Reason: dizziness) Qty: 30 0RF Continued aspirin 81 mg tablet,chewable 1 tab PO DAILY rosuvastatin [Crestor] 20 mg tablet 20 mg PO DAILY lisinopril 20 mg tablet 20 mg PO DAILY Referrals / Follow Up: [facility] Doctor,Out of [Non-Staff] - [place] [Primary Care Provider] - Within 1 Week Disposition Disposition (needs filled in before D/C Order can be placed): Home, Self Care Charges/Coding Visit Charges Inpatient E&M: 27959 Disch Hosp >30min
--- NOTE | 2024-04-01 14:05 | CASEMGMT ---
Patient has order for discharge. RN CM in to discuss needs at discharge, family at bedside. Patient independent in room. Patient denies needs or help at discharge. Patient had no further questions or concerns.
--- NOTE | 2024-04-01 14:11 | PHA.DC.MC.R ---
Pharmacy [facility] Pharm[facility] Service has performed discharge medication reconciliation and counseling for this patient. 1. MECLIZINE 25MG PO TID PRN DIZZINESS The patient's discharge medication list was reviewed for discrepancies and discrepancies were resolved. The patient was counseled on the following discharge medications and changes in medications for homegoing were reviewed. The Reason for Use, instructions for use, and potential side effects were reviewed for all new medications. The patient's questions regarding all of their medications were answered. The patient was able to verbally demonstrate an understanding of their discharge medications. Medications at Discharge Home Medications aspirin 81 mg chewable tablet 1 tab PO DAILY 03/31/24 lisinopril 20 mg tablet 20 mg PO DAILY 03/31/24 rosuvastatin 20 mg tablet (Crestor) 20 mg PO DAILY 03/31/24 meclizine 25 mg tablet 25 mg PO TID PRN dizziness #30 tabs 04/01/24
[2024-04-01 14:16] VITALS: BP 153/94; PULSE 73; RESP 16; TEMP 36.5; O2SAT 96
== END 2024-04-01 13:12 | disposition home or self-care (01) ==
LOC: ED 11:57 → PCU 12:14
PROVIDERS: Admitting Provider Internal Medicine; Emergency Provider Emergency Medicine; Visit Provider Internal Medicine
DX: R42 Dizziness and giddiness (principal); Z79.82 Long term (current) use of aspirin; E78.5 Hyperlipidemia, unspecified; I10 Essential (primary) hypertension; R51.9 Headache, unspecified; N40.0 Benign prostatic hyperplasia without lower urinary tract symptoms; Z79.899 Other long term (current) drug therapy; R00.1 Bradycardia, unspecified; H53.149 Visual discomfort, unspecified; H93.13 Tinnitus, bilateral
CPT/HCPCS: 36415; 70450; 70496; 70498; 70551; 71045; 80048; 80061; 82962; 83036; 83735; 84100; 84443; 84484; 85025; 85610; 85730; 93005; 94762; 96372; 99221; 99252; 99285; Q9967; A4216; G0378; G0463